=== PATIENT | female | born 1960 | race Caucasian/White ===

== ENCOUNTER 2023-03-04 18:38 | Inpatient (IN) | payer MEDICARE, BC ==
[~2023-03-04] VITALS: Ht 160 cm; Wt 78.9 kg
[2023-03-04] MEDS ORDERED: LURA60TA3 PO (19:18)
[2023-03-04] MEDS ORDERED: LORA0.5T48 PO (19:18)
[2023-03-04] MEDS ORDERED: CLON0.1T PO (19:18)
[2023-03-04] MEDS ORDERED: GABA-532 PO (19:18)
[2023-03-04 19:55] LABS: BASOPHILS % (AUTO) 0.7 % (0.0-2.0); EOSINOPHILS # (AUTO) 0.5 K/uL (0.0-0.7); EOSINOPHILS % (AUTO) 6.5 % (0.0-7.0); HEMATOCRIT 39.5 % (31.2-41.9); HEMOGLOBIN 13.9 g/dL (10.9-14.3); LYMPHOCYTES # (AUTO) 2.8 K/uL (0.8-4.8); LYMPHOCYTES % (AUTO) 40.1 % (20.5-51.5); MEAN CORPUSCULAR HEMOGLOBIN 35.9 uug (24.7-32.8); MEAN CORPUSCULAR HGB CONC 35 g/dL (32.3-35.6); MEAN CORPUSCULAR VOLUME 101.9 fL (75.5-95.3); MONOCYTES # (AUTO) 0.6 K/uL (0.1-1.30); MONOCYTES % (AUTO) 8.7 % (0.0-11.0); NEUTROPHILS # (AUTO) 3.1 K/uL (1.8-8.9); PLATELET COUNT (AUTO) 250 K/uL (179-408); RED BLOOD CELL COUNT(AUTO) 3.87 MIL/uL (3.63-4.92); RED CELL DISTRIBUTION WIDTH 12.6 % (12.3-17.7); WHITE BLOOD COUNT (AUTO) 7.1 K/uL (3.8-11.8)
[2023-03-04 19:57] LABS: DIFFERENTIAL COMMENT 1
[2023-03-04 20:09] LABS: AMMONIA 33 umol/L (11-32)
[2023-03-04 20:19] LABS: CALCIUM 10.2 mg/dL (8.5-10.1); CARBON DIOXIDE 28 mmol/L (21-32); CHLORIDE 105 mmol/L (98-107); CREATININE 0.9 mg/dL (0.6-1.3); ETHANOL < 3 MG/DL (0-10); GLUCOSE 119 mg/dL (74-106); POTASSIUM 4.4 mmol/L (3.5-5.1); SODIUM SERUM 140 mmol/L (136-145); UREA NITROGEN, BLOOD 18 mg/dL (7-18)
[2023-03-04 20:27] LABS: ALANINE AMINOTRANSFERASE 21 U/L (14-59); ALBUMIN 3.5 g/dL (3.4-5.0); ALKALINE PHOSPHATASE 84 U/L (50-136); ASPARTATE AMINOTRANSFERASE 11 U/L (15-37); BILIRUBIN,TOTAL 0.2 mg/dL (0.2-1.0); TOTAL PROTEIN, SERUM 6.8 g/dL (6.4-8.2)
[2023-03-04] MEDS ORDERED: diphenhydrAMINE 50 MG/1 ML VIAL IV ONE (20:30)
[2023-03-04] MEDS ORDERED: diphenhydrAMINE 50 MG/1 ML VIAL ONE (20:31)
[2023-03-04 20:33] LABS: THYROID STIMULATING HORMONE 1.676 mIU/mL (0.358-3.740)
[2023-03-04 20:55] LABS: BILIRUBIN,DIRECT 0.1 mg/dL (0.0-0.2)
[2023-03-04 20:56] LABS: ACETAMINOPHEN < 2.0 ug/mL (10-30)
[2023-03-04] MEDS ORDERED: diphenhydrAMINE 50 MG/1 ML VIAL IM ONE (21:15)
[2023-03-05 01:55] VITALS: BP 143/72; TEMP 98.3; O2SAT 98
[2023-03-05] MEDS ORDERED: BLOOD SUGAR DIAGNOSTIC 1 EACH STRIP VI ONE (02:00)
[2023-03-05] MEDS ORDERED: MAG HYDROX/AL HYDROX/SIMETH 30 ML LIQUID UDC PO PRN (02:00)
[2023-03-05] MEDS ORDERED: MAGNESIUM HYDROXIDE 30 ML LIQUID UDC PO PRN (02:00)
[2023-03-05] MEDS: ACETAMINOPHEN 325 MG TABLET PO PRN (02:38)
[2023-03-05] MEDS ORDERED: ATEN25TA PO (05:54)
[2023-03-05] MEDS ORDERED: LITH300C2 PO (05:55)
[2023-03-05] MEDS ORDERED: OXCA150T5 GT (05:56)
[2023-03-05 07:52] VITALS: BP 158/77; TEMP 97.8; O2SAT 98
[2023-03-05] MEDS: NICOTINE 14 MG/24HR PATCH TD SCH (10:41)
[2023-03-05] MEDS: OXCARBAZEPINE 150 MG TABLET PO SCH ×3 (12:08→17:30)
[2023-03-05] MEDS: risperiDONE 0.5 MG TABLET PO SCH ×2 (12:09→21:18)
[2023-03-05] MEDS: LITHIUM CARBONATE 150 MG CAPSULE PO SCH ×3 (12:09→17:30)
[2023-03-05 16:21] VITALS: BP 160/79; TEMP 98; O2SAT 98
[2023-03-05] MEDS ORDERED: ATENOLOL 50 MG TABLET PO ONE (19:00)
[2023-03-05 19:45] VITALS: BP 142/83; TEMP 98.1; O2SAT 97
[2023-03-05] MEDS: GABAPENTIN 100 MG CAPSULE PO SCH (21:18)
[2023-03-06 07:36] VITALS: BP 120/71; TEMP 97.8; O2SAT 98
[2023-03-06] MEDS: ATENOLOL 50 MG TABLET PO SCH (08:40)
[2023-03-06] MEDS: OXCARBAZEPINE 150 MG TABLET PO SCH ×3 (08:41→17:20)
[2023-03-06] MEDS: GABAPENTIN 100 MG CAPSULE PO SCH ×2 (08:42→17:20)
[2023-03-06] MEDS: NICOTINE 14 MG/24HR PATCH TD SCH (08:42)
[2023-03-06] MEDS: LITHIUM CARBONATE 150 MG CAPSULE PO SCH ×3 (08:42→17:20)
[2023-03-06] MEDS: CLONIDINE HCL 0.1 MG TABLET PO SCH ×2 (08:42→20:38)
[2023-03-06] MEDS: ACETAMINOPHEN 325 MG TABLET PO PRN (08:42)
[2023-03-06] MEDS: risperiDONE 0.5 MG TABLET PO SCH ×2 (08:42→20:37)
[2023-03-06] MEDS: ATENOLOL 25 MG TABLET PO SCH (09:00)
[2023-03-06] MEDS: THIAMINE HCL 100 MG TABLET PO SCH (11:19)
[2023-03-06] MEDS: FOLIC ACID 1 MG TABLET PO SCH (11:19)
[2023-03-06 15:31] VITALS: BP 105/59; TEMP 97.8; O2SAT 98
[2023-03-06 20:03] VITALS: BP 126/66; TEMP 98.1; O2SAT 98
[2023-03-07 07:44] VITALS: BP 114/69; TEMP 98; O2SAT 96
[2023-03-07] MEDS: GABAPENTIN 100 MG CAPSULE PO SCH ×2 (10:38→18:24)
[2023-03-07] MEDS: LITHIUM CARBONATE 150 MG CAPSULE PO SCH ×3 (10:38→18:23)
[2023-03-07] MEDS: NICOTINE 14 MG/24HR PATCH TD SCH (10:38)
[2023-03-07] MEDS: THIAMINE HCL 100 MG TABLET PO SCH (10:38)
[2023-03-07] MEDS: OXCARBAZEPINE 150 MG TABLET PO SCH ×3 (10:38→18:24)
[2023-03-07] MEDS: FOLIC ACID 1 MG TABLET PO SCH (10:38)
[2023-03-07] MEDS: risperiDONE 0.5 MG TABLET PO SCH ×2 (10:38→21:00)
[2023-03-07] MEDS: CLONIDINE HCL 0.1 MG TABLET PO SCH ×2 (10:39→22:21)
[2023-03-07] MEDS: ATENOLOL 50 MG TABLET PO SCH (10:39)
[2023-03-07] MEDS: ATENOLOL 25 MG TABLET PO SCH (10:40)
[2023-03-07 15:43] VITALS: BP 108/53; TEMP 98; O2SAT 99
[2023-03-07 20:00] VITALS: BP 123/69; TEMP 98; O2SAT 98
[2023-03-08] MEDS: hydrOXYzine HCL 25 MG TABLET PO PRN (02:24)
[2023-03-08 07:56] VITALS: BP 121/74; TEMP 98; O2SAT 96
[2023-03-08] MEDS: GABAPENTIN 100 MG CAPSULE PO SCH ×3 (09:03→17:55)
[2023-03-08] MEDS: NICOTINE 14 MG/24HR PATCH TD SCH (09:03)
[2023-03-08] MEDS: LITHIUM CARBONATE 150 MG CAPSULE PO SCH ×3 (09:03→17:54)
[2023-03-08] MEDS: THIAMINE HCL 100 MG TABLET PO SCH (09:04)
[2023-03-08] MEDS: ATENOLOL 25 MG TABLET PO SCH (09:04)
[2023-03-08] MEDS: OXCARBAZEPINE 150 MG TABLET PO SCH ×3 (09:04→17:53)
[2023-03-08] MEDS: CLONIDINE HCL 0.1 MG TABLET PO SCH ×2 (09:04→20:56)
[2023-03-08] MEDS: risperiDONE 0.5 MG TABLET PO SCH ×2 (09:04→20:56)
[2023-03-08] MEDS: FOLIC ACID 1 MG TABLET PO SCH (09:04)
[2023-03-08] MEDS: ATENOLOL 50 MG TABLET PO SCH (09:05)
[2023-03-08 15:22] VITALS: BP 114/55; TEMP 98; O2SAT 97
[2023-03-08 20:00] VITALS: BP 127/64; TEMP 98.7; O2SAT 99
[2023-03-08] MEDS: ATORVASTATIN 10 MG TABLET PO SCH (20:56)
[2023-03-09] MEDS: hydrOXYzine HCL 25 MG TABLET PO PRN ×3 (00:32→23:16)
[2023-03-09 08:43] VITALS: BP 124/68; TEMP 98.2; O2SAT 98
[2023-03-09] MEDS ORDERED: risperiDONE 0.5 MG TABLET PO SCH (09:00)
[2023-03-09] MEDS: NICOTINE 14 MG/24HR PATCH TD SCH (09:18)
[2023-03-09] MEDS: THIAMINE HCL 100 MG TABLET PO SCH (09:19)
[2023-03-09] MEDS: CLONIDINE HCL 0.1 MG TABLET PO SCH ×2 (09:19→20:38)
[2023-03-09] MEDS: GABAPENTIN 100 MG CAPSULE PO SCH ×2 (09:19→17:22)
[2023-03-09] MEDS: risperiDONE 1 MG TABLET PO SCH ×2 (09:19→20:38)
[2023-03-09] MEDS: LITHIUM CARBONATE 150 MG CAPSULE PO SCH ×3 (09:19→17:22)
[2023-03-09] MEDS: FOLIC ACID 1 MG TABLET PO SCH (09:20)
[2023-03-09] MEDS: OXCARBAZEPINE 150 MG TABLET PO SCH ×3 (09:20→17:22)
[2023-03-09] MEDS: ATENOLOL 25 MG TABLET PO SCH (09:22)
[2023-03-09] MEDS: ATENOLOL 50 MG TABLET PO SCH (09:23)
[2023-03-09 15:20] VITALS: BP 142/62; TEMP 98.2; O2SAT 98
[2023-03-09 20:00] VITALS: BP 115/56; TEMP 98.4
[2023-03-09] MEDS: TRAZODONE 50 MG TABLET PO SCH (20:37)
[2023-03-09] MEDS: ATORVASTATIN 10 MG TABLET PO SCH (20:38)
[2023-03-09] MEDS: ACETAMINOPHEN 325 MG TABLET PO PRN (22:59)
[2023-03-10 07:42] VITALS: BP 134/64; TEMP 98.2; O2SAT 99
[2023-03-10] MEDS: CLONIDINE HCL 0.1 MG TABLET PO SCH ×2 (09:06→21:38)
[2023-03-10] MEDS: risperiDONE 1 MG TABLET PO SCH ×2 (09:06→21:38)
[2023-03-10] MEDS: GABAPENTIN 100 MG CAPSULE PO SCH ×2 (09:06→17:25)
[2023-03-10] MEDS: LITHIUM CARBONATE 150 MG CAPSULE PO SCH ×3 (09:07→17:25)
[2023-03-10] MEDS: OXCARBAZEPINE 150 MG TABLET PO SCH ×3 (09:07→17:25)
[2023-03-10] MEDS: THIAMINE HCL 100 MG TABLET PO SCH (09:07)
[2023-03-10] MEDS: FOLIC ACID 1 MG TABLET PO SCH (09:07)
[2023-03-10] MEDS: ATENOLOL 25 MG TABLET PO SCH (09:07)
[2023-03-10] MEDS: NICOTINE 14 MG/24HR PATCH TD SCH (09:07)
[2023-03-10] MEDS: ATENOLOL 50 MG TABLET PO SCH (09:07)
[2023-03-10 16:09] VITALS: BP 116/53; TEMP 98; O2SAT 99
[2023-03-10 20:00] VITALS: BP 112/50; TEMP 98.7; O2SAT 95
[2023-03-10] MEDS: TRAZODONE 50 MG TABLET PO SCH (21:37)
[2023-03-10] MEDS: ATORVASTATIN 10 MG TABLET PO SCH (21:37)
[2023-03-11] MEDS: ACETAMINOPHEN 325 MG TABLET PO PRN (04:01)
[2023-03-11] MEDS: hydrOXYzine HCL 25 MG TABLET PO PRN (04:01)
[2023-03-11 07:52] VITALS: BP 139/72; TEMP 97.9; O2SAT 98
[2023-03-11] MEDS: FOLIC ACID 1 MG TABLET PO SCH (08:54)
[2023-03-11] MEDS: LITHIUM CARBONATE 150 MG CAPSULE PO SCH ×3 (08:54→18:04)
[2023-03-11] MEDS: THIAMINE HCL 100 MG TABLET PO SCH (08:54)
[2023-03-11] MEDS: risperiDONE 1 MG TABLET PO SCH ×2 (08:54→21:05)
[2023-03-11] MEDS: OXCARBAZEPINE 150 MG TABLET PO SCH ×3 (08:54→18:04)
[2023-03-11] MEDS: GABAPENTIN 100 MG CAPSULE PO SCH ×2 (08:55→18:04)
[2023-03-11] MEDS: CLONIDINE HCL 0.1 MG TABLET PO SCH ×2 (08:55→21:05)
[2023-03-11] MEDS: NICOTINE 14 MG/24HR PATCH TD SCH (08:56)
[2023-03-11] MEDS: ATENOLOL 50 MG TABLET PO SCH (08:57)
[2023-03-11] MEDS: ATENOLOL 25 MG TABLET PO SCH (08:59)
[2023-03-11 16:02] VITALS: BP 126/56; TEMP 98; O2SAT 98
[2023-03-11 20:00] VITALS: BP 129/67; TEMP 98.5; O2SAT 96
[2023-03-11] MEDS: diphenhydrAMINE 50 MG CAPSULE PO SCH (21:05)
[2023-03-11] MEDS: ATORVASTATIN 10 MG TABLET PO SCH (21:05)
[2023-03-11] MEDS: TRAZODONE 50 MG TABLET PO SCH (21:05)
[2023-03-12 07:48] VITALS: BP 123/69; TEMP 98.3; O2SAT 98
[2023-03-12] MEDS: risperiDONE 1 MG TABLET PO SCH ×2 (09:03→21:55)
[2023-03-12] MEDS: GABAPENTIN 100 MG CAPSULE PO SCH ×2 (09:03→16:11)
[2023-03-12] MEDS: OXCARBAZEPINE 150 MG TABLET PO SCH ×3 (09:03→16:11)
[2023-03-12] MEDS: LITHIUM CARBONATE 150 MG CAPSULE PO SCH ×3 (09:03→16:11)
[2023-03-12] MEDS: FOLIC ACID 1 MG TABLET PO SCH (09:03)
[2023-03-12] MEDS: CLONIDINE HCL 0.1 MG TABLET PO SCH ×2 (09:04→21:54)
[2023-03-12] MEDS: THIAMINE HCL 100 MG TABLET PO SCH (09:04)
[2023-03-12] MEDS: ATENOLOL 50 MG TABLET PO SCH (09:04)
[2023-03-12] MEDS: ATENOLOL 25 MG TABLET PO SCH (09:04)
[2023-03-12] MEDS: NICOTINE 14 MG/24HR PATCH TD SCH (09:05)
[2023-03-12 16:01] VITALS: BP 138/67; TEMP 98; O2SAT 99
[2023-03-12 20:00] VITALS: BP 140/70; TEMP 97.9; O2SAT 97
[2023-03-12] MEDS: TRAZODONE 50 MG TABLET PO SCH (21:54)
[2023-03-12] MEDS: ATORVASTATIN 10 MG TABLET PO SCH (21:54)
[2023-03-12] MEDS: diphenhydrAMINE 50 MG CAPSULE PO SCH (21:55)
[2023-03-13 07:46] VITALS: BP 124/65; TEMP 98.2; O2SAT 98
[2023-03-13] MEDS: NICOTINE 14 MG/24HR PATCH TD SCH (08:37)
[2023-03-13] MEDS: OXCARBAZEPINE 150 MG TABLET PO SCH ×3 (08:38→16:22)
[2023-03-13] MEDS: risperiDONE 1 MG TABLET PO SCH ×2 (08:38→21:35)
[2023-03-13] MEDS: FOLIC ACID 1 MG TABLET PO SCH (08:38)
[2023-03-13] MEDS: GABAPENTIN 100 MG CAPSULE PO SCH ×2 (08:38→16:22)
[2023-03-13] MEDS: ATENOLOL 25 MG TABLET PO SCH (08:39)
[2023-03-13] MEDS: CLONIDINE HCL 0.1 MG TABLET PO SCH ×2 (08:39→21:35)
[2023-03-13] MEDS: THIAMINE HCL 100 MG TABLET PO SCH (08:39)
[2023-03-13] MEDS: ATENOLOL 50 MG TABLET PO SCH (08:39)
[2023-03-13] MEDS: LITHIUM CARBONATE 150 MG CAPSULE PO SCH ×3 (08:39→16:22)
[2023-03-13 15:09] VITALS: BP 120/48; TEMP 97.4; O2SAT 100
[2023-03-13 20:00] VITALS: BP 104/54; TEMP 98; O2SAT 98
[2023-03-13] MEDS: ATORVASTATIN 10 MG TABLET PO SCH (21:36)
[2023-03-13] MEDS: TRAZODONE 50 MG TABLET PO SCH (21:36)
[2023-03-13] MEDS: diphenhydrAMINE 50 MG CAPSULE PO SCH (21:40)
[2023-03-14 07:53] VITALS: BP 111/59; TEMP 98; O2SAT 99
[2023-03-14] MEDS: GABAPENTIN 100 MG CAPSULE PO SCH (08:56)
[2023-03-14] MEDS: LITHIUM CARBONATE 150 MG CAPSULE PO SCH (08:57)
[2023-03-14] MEDS: THIAMINE HCL 100 MG TABLET PO SCH (08:57)
[2023-03-14] MEDS: CLONIDINE HCL 0.1 MG TABLET PO SCH (08:57)
[2023-03-14] MEDS: FOLIC ACID 1 MG TABLET PO SCH (08:58)
[2023-03-14] MEDS: ATENOLOL 50 MG TABLET PO SCH (08:58)
[2023-03-14] MEDS: OXCARBAZEPINE 150 MG TABLET PO SCH (08:58)
[2023-03-14] MEDS: risperiDONE 1 MG TABLET PO SCH (08:59)
[2023-03-14 09:00] VITALS: BP 111/59
[2023-03-14] MEDS: ATENOLOL 25 MG TABLET PO SCH (09:00)
[2023-03-14] MEDS: NICOTINE 14 MG/24HR PATCH TD SCH (09:01)
== END 2023-03-14 11:37 | disposition home or self-care (01) | DRG 885 ==
LOC: ER 18:41 → GPS 20:40
PROVIDERS: ADMIT Psychiatry & Neurology Psychiatry; ATTEND Internal Medicine
DX: F31.64 Bipolar disorder, current episode mixed, severe, with psychotic features (principal); I10 Essential (primary) hypertension; E78.5 Hyperlipidemia, unspecified; E66.9 Obesity, unspecified; Z68.28 Body mass index [BMI] 28.0-28.9, adult; Z87.891 Personal history of nicotine dependence; M81.0 Age-related osteoporosis without current pathological fracture; M79.7 Fibromyalgia; Z88.8 Allergy status to other drugs, medicaments and biological substances; D75.89 Other specified diseases of blood and blood-forming organs; G47.00 Insomnia, unspecified; Z90.710 Acquired absence of both cervix and uterus; R79.89 Other specified abnormal findings of blood chemistry; Z79.899 Other long term (current) drug therapy
CPT/HCPCS: 36415; 70030-TC; 70450; 71045; 76705; 83605; 84443; 84484; 85025; 85730; 87040; 93005; G0480; J1200; Q0163